=== PATIENT | male | born 1950 | race Caucasian/White ===

== ENCOUNTER 2016-08-26 08:22 | Day surgery (SDC) | payer OTHER ==
--- NOTE | ~2016-08-26 | EGD ---
EGD REPORT [facility] [address] [address] NAME: BJORN RAUSCH : [birth year] STATUS : REG [facility] [place] PAT#: [id number] AGE: 66 ADM/REG DATE : 08/26/16 MR#: [id number] REPORT SERV DATE: 08/26/16 DICTATED BY: KARY NAIR DATE: 08/26/16 REPORT STATUS : Draft TRANSCRIBED BY: [facility] DATE: 08/26/16 Endoscopy Center Patient Name: Bjorn Rausch Date of : 1950 Attending MD: KARY NAIR MD Procedure Date No Time: 08/26/2016 Procedure: Upper GI endoscopy Indications: Abdominal pain in the left upper quadrant, Eructation, Personal history of peptic ulcer disease Referring MD: JENNIFFER RODRIGUEZ MD Medicines: as per anesthesia Complications: No immediate complications. Procedure: Pre-Anesthesia Assessment: - ASA Grade Assessment: III - A patient with severe systemic disease. After obtaining informed consent, the endoscope was passed under direct vision. Throughout the procedure, the patient's blood pressure, pulse, and oxygen saturations were monitored continuously. The GIF H190 [id number] was introduced through the mouth, and advanced to the third part of duodenum. The upper GI endoscopy was accomplished without difficulty. The patient tolerated the procedure. Findings: The examined esophagus was normal. Localized mild inflammation characterized by erythema was found in the gastric antrum. Biopsies were taken with a cold forceps for histology. The cardia and gastric fundus were normal on retroflexion. The examined duodenum was normal. Impression: - Normal esophagus. - Gastritis. Biopsied. - Normal examined duodenum. Recommendation: - Await pathology results. Procedure Code(s): --- Professional --- 16538, Esophagogastroduodenoscopy, flexible, transoral; with biopsy, single or multiple Diagnosis Code(s): --- Professional --- K29.70, Gastritis, unspecified, without bleeding R10.12, Left upper quadrant pain R14.2, Eructation EGD REPORT [facility] [address] [address] NAME: BJORN RAUSCH : [birth year] STATUS : REG [facility] [place] PAT#: [id number] AGE: 66 ADM/REG DATE : 08/26/16 MR#: [id number] REPORT SERV DATE: 08/26/16 DICTATED BY: KARY NAIR. DATE: 08/26/16 REPORT STATUS : Draft TRANSCRIBED BY: [employer] DATE: 08/26/16 Z87.11, Personal history of peptic ulcer disease CPT copyright 2013 [employer]. All rights reserved. The codes documented in this report are preliminary and upon finishing area operator review may be revised to meet current compliance requirements. KARY NAIR MD 08/26/2016 9:32 AM This report has been signed electronically. Number of Addenda: 0 Note Initiated On: 08/26/2016 9:08 AM Scope Withdrawal Time 0 hours 0 minutes 0 seconds [address] [id number]
--- NOTE | ~2016-08-26 | EGD ---
EGD REPORT [facility] [address] [place] [address] NAME: BJORN RAUSCH : [birth year] STATUS : REG [facility] [place] PAT#: [id number] AGE: 66 ADM/REG DATE : 08/26/16 MR#: [id number] REPORT SERV DATE: 08/26/16 DICTATED BY: KARY NAIR DATE: 08/26/16 REPORT STATUS : Draft [facility] DATE: 08/26/16 Endoscopy Center Patient Name: Bjorn Rausch Date of : 1950 Attending MD: KARY NAIR MD Procedure Date No Time: 08/26/2016 Procedure: Colonoscopy Indications: Colon cancer screening in patient at increased risk: Family history of colon polyps Referring MD: JENNIFFER RODRIGUEZ MD Medicines: as per anesthesia Complications: No immediate complications. Procedure: Pre-Anesthesia Assessment: - ASA Grade Assessment: III - A patient with severe systemic disease. After I obtained informed consent, the scope was passed under direct vision. Throughout the procedure, the patient's blood pressure, pulse, and oxygen saturations were monitored continuously. The PCF [id number] was introduced through the anus and advanced to the cecum, identified by appendiceal orifice and ileocecal valve. The colonoscopy was performed without difficulty. The patient tolerated the procedure. The quality of the bowel preparation was adequate to identify polyps. Findings: The perianal and digital rectal examinations were normal. Internal hemorrhoids were found during endoscopy and were mild. Impression: - Internal hemorrhoids. Recommendation: - Repeat colonoscopy in 5 years for surveillance. Procedure Code(s): --- Professional --- 54655, Colonoscopy, flexible, proximal to splenic flexure; diagnostic, with or without collection of specimen(s) by brushing or washing, with or without colon decompression (separate procedure) Diagnosis Code(s): --- Professional --- K64.8, Other hemorrhoids Z12.11, Encounter for screening for malignant neoplasm of colon Z83.71, Family history of colonic polyps EGD REPORT [facility] [address] [address] NAME: BJORN RAUSCH : [birth year] STATUS : REG [facility] [place] PAT#: [id number] AGE: 66 ADM/REG DATE : 08/26/16 MR#: [id number] REPORT SERV DATE: 08/26/16 DICTATED BY: KARY NAIR. DATE: 08/26/16 REPORT STATUS : Draft TRANSCRIBED BY: [employer] DATE: 08/26/16 CPT copyright 2013 [employer]. All rights reserved. The codes documented in this report are preliminary and upon vegetable sorter review may be revised to meet current compliance requirements. KARY NAIR MD 08/26/2016 9:54 AM This report has been signed electronically. Number of Addenda: 0 Note Initiated On: 08/26/2016 9:11 AM Scope Withdrawal Time 0 hours 8 minutes 26 seconds [address] [address]
[~2016-08-26 08:22] MED LIST: ASAB PO; CHLOR-TRIMETON4 MG PO; CIALIS10 MG PO; COZ25 PO; CRESTOR20 MG PO; FLOMAX4 PO; L20 PO; MULTIPLE VIT PO; PROBIOTIC; ZITH250 PO; ZYRTEC ALLGY10 MG PO
== END 2016-08-26 23:59 | disposition home or self-care (01) ==
LOC: DMU 08:22
PROVIDERS: Internal Medicine Gastroenterology
PROC: 0DB68ZZ Excision of Stomach, Via Natural or Artificial Opening Endoscopic (ICD-10-PCS; principal; 2016-08-26 10:00)
PROC: 0DJD8ZZ Inspection of Lower Intestinal Tract, Via Natural or Artificial Opening Endoscopic (ICD-10-PCS; 2016-08-26 10:00)
DX: Z12.11 Encounter for screening for malignant neoplasm of colon (principal); K29.50 Unspecified chronic gastritis without bleeding; K64.8 Other hemorrhoids; K52.9 Noninfective gastroenteritis and colitis, unspecified; I10 Essential (primary) hypertension; I25.2 Old myocardial infarction; G47.33 Obstructive sleep apnea (adult) (pediatric); Z83.71 Family history of colonic polyps; Z88.0 Allergy status to penicillin; Z88.1 Allergy status to other antibiotic agents; Z91.013 Allergy to seafood; Z91.030 Bee allergy status; Z90.89 Acquired absence of other organs; Z79.899 Other long term (current) drug therapy
CPT/HCPCS: 88305